=== PATIENT | male | born 1945 | race Caucasian/White ===

== ENCOUNTER → 2016-07-23 | Outpatient (CLI) | payer MEDICARE, OTHER ==
[~2016-07-23] MED LIST: FISH OIL CONC1000 MG PO; LORTAB 5/500 501 TAB PO; MULTI VITAMINS1 TAB PO; PRILOTC PO; ZYLOPRIM 100MG100 MG PO
== END ==
LOC: COL.RAD 07:21
DX: K76.0 Fatty (change of) liver, not elsewhere classified (principal); R16.0 Hepatomegaly, not elsewhere classified; R10.811 Right upper quadrant abdominal tenderness

== ENCOUNTER → 2017-05-15 | Outpatient (CLI) | payer MEDICARE, OTHER | LOC: COL.RAD 14:15 | DX: K44.9 Diaphragmatic hernia without obstruction or gangrene (principal); K22.70 Barrett's esophagus without dysplasia; K21.9 Gastro-esophageal reflux disease without esophagitis | CPT/HCPCS: Q9967 ==

== ENCOUNTER → 2017-06-16 | Outpatient (CLI) | payer MEDICARE, OTHER | LOC: COL.RAD 07:31 | DX: K22.4 Dyskinesia of esophagus (principal); K44.9 Diaphragmatic hernia without obstruction or gangrene ==

== ENCOUNTER 2017-06-24 11:37 | Day surgery (SDC) | payer MEDICARE, OTHER ==
[2017-06-24] VITALS (10 sets, daily range): BP systolic 110–157; BP diastolic 64–103; PULSE 71–97; TEMP 97.9–98.7
[~2017-06-24] VITALS: Ht 188 cm; Wt 112.9 kg
[2017-06-25 02:35] VITALS: BP 155/103; PULSE 81; TEMP 97.8
[2017-06-25 04:49] VITALS: BP 127/73; PULSE 81; TEMP 97.8
[2017-06-25 06:51] LABS: HEMATOCRIT 42.5 % (42.0-52.0); HEMOGLOBIN 14.7 g/dl (13.5-18.0)
[2017-06-25 07:00] LABS: CALCIUM 9.4 mg/dL (8.4-10.2); CREATININE, serum 0.97 mg/dL (0.66-1.25); POTASSIUM 4.4 mmol/L (3.4-5.0)
[2017-06-25 09:56] VITALS: BP 129/67; PULSE 66; TEMP 97.3
[2017-06-25 13:36] VITALS: BP 135/68; PULSE 65; TEMP 97.5
== END 2017-06-25 14:15 | disposition home or self-care (01) ==
LOC: SDCO 11:37 → SURG 18:35 → SDCO 06-25 07:30
PROVIDERS: Surgery
DX: K44.9 Diaphragmatic hernia without obstruction or gangrene (principal); K21.9 Gastro-esophageal reflux disease without esophagitis; K22.70 Barrett's esophagus without dysplasia; K29.70 Gastritis, unspecified, without bleeding; K76.0 Fatty (change of) liver, not elsewhere classified; Z80.0 Family history of malignant neoplasm of digestive organs; Z80.42 Family history of malignant neoplasm of prostate; F41.9 Anxiety disorder, unspecified; M10.9 Gout, unspecified; Z68.30 Body mass index [BMI] 30.0-30.9, adult
CPT/HCPCS: OP; C1713; C1781; J0330; J0690; J1100; J1170; J2250; J2405; J2704; J2710; J3010; J7042; J7120

== ENCOUNTER 2020-12-01 13:01 | Emergency (ER) | payer MEDICARE, OTHER ==
[~2020-12-01] VITALS: Ht 188 cm; Wt 109.1 kg
[2020-12-01 13:22] VITALS: TEMP 98.2
[2020-12-01] MEDS ORDERED: FLEXERIL 1010 MG/TAB PO (14:20)
[2020-12-01 14:30] VITALS: BP 125/71; PULSE 78
== END 2020-12-01 14:32 | disposition home or self-care (01) ==
LOC: COL.ER 13:01
DX: M62.830 Muscle spasm of back (principal); M10.9 Gout, unspecified; Z79.899 Other long term (current) drug therapy
CPT/HCPCS: J1885